=== PATIENT | male | born 1995 | race African-American/Black ===

== ENCOUNTER 2017-03-22 08:46 | Emergency (ER) | payer MEDICAID, OTHER ==
[~2017-03-22] VITALS: Ht 188 cm; Wt 96.0 kg
[2017-03-22] MEDS ORDERED: KETOROLAC 60MG/2ML VIAL IM ONE (10:15)
[2017-03-22 10:16] VITALS: BP 139/73
== END 2017-03-22 10:54 | disposition home or self-care (01) ==
LOC: ER 10:44
DX: J06.9 Acute upper respiratory infection, unspecified (principal); J45.909 Unspecified asthma, uncomplicated; R51 Headache; F17.200 Nicotine dependence, unspecified, uncomplicated
CPT/HCPCS: 96372; 99283; J1885; Z7610